=== PATIENT | male | born 1975 | race Caucasian/White ===

== ENCOUNTER 2018-02-08 23:42 | Emergency (ER) | payer OTHER ==
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
[2018-02-09] MEDS ORDERED: TORADOL IM ONE (08:10)
[2018-02-09] MEDS ORDERED: ZOFRAN ODT PO ONE (08:10)
[2018-02-09 08:31] VITALS: BP 120/82
== END 2018-02-09 08:29 | disposition home or self-care (01) ==
LOC: ED 23:42
DX: S46.912A Strain of unspecified muscle, fascia and tendon at shoulder and upper arm level, left arm, initial encounter (principal); G44.209 Tension-type headache, unspecified, not intractable; V89.2XXA Person injured in unspecified motor-vehicle accident, traffic, initial encounter; Y93.89 Activity, other specified; Y92.89 Other specified places as the place of occurrence of the external cause; Y99.8 Other external cause status
CPT/HCPCS: 70450; 96372; 99283; J1885; Q0162